=== PATIENT | male | born 1950 | race Caucasian/White ===

== ENCOUNTER 2025-02-11 17:14 | Inpatient (IN) ==
[2025-02-11] MEDS ORDERED: IOPAMIDOL 100 ML BOTTLE IV ONE (17:15)
[2025-02-11] MEDS: 0.9 % SODIUM CHLORIDE 1,000 ML IV ONE (18:00)
[2025-02-11] MEDS: ONDANSETRON 4 MG/2 ML VIAL IV ONE ×2 (18:00→19:30)
[2025-02-11 18:04] LABS: Basophils # (Auto) 0.03 K/mcL (0.00-0.30); Basophils % (Auto) 0.2 % (0.0-2.0); Eosinophils # (Auto) 0.10 K/mcL (0.00-0.70); Eosinophils % (Auto) 0.8 % (0.0-7.0); Hematocrit 52.1 % (40.1-51.0); Hemoglobin 17.0 g/dL (13.7-17.5); Lymphocytes # (Auto) 1.15 K/mcL (1.50-4.80); Lymphocytes % (Auto) 8.7 % (15.5-49.0); Mean Corpuscular HGB Conc 32.6 g/dL (31.0-36.0); Monocytes # (Auto) 0.35 K/mcL (0.10-0.90); Monocytes % (Auto) 2.7 % (1.0-12.0); Neutrophils % (Auto) 87.4 % (38.0-78.0); Platelet Count 207 K/mcL (140-440); RBC 5.34 M/mcL (4.63-6.08); WBC 13.2 K/mcL (4.5-11.0)
[2025-02-11 18:14] LABS: ALT/SGPT 28 U/L (<40); AST/SGOT 24 U/L (<40); Albumin 4.2 gm/dL (3.2-5.2); Albumin/Globulin Ratio 1.2 (1.0-2.3); Alkaline Phosphatase 77 U/L (39-117); Anion Gap 17.0 (8.0-16.0); Bilirubin,Total 1.2 mg/dL (0.1-1.0); Blood Urea Nitrogen 16 mg/dL (8-23); Calcium 9.6 mg/dL (8.6-10.4); Carbon Dioxide 22 mmol/L (22-30); Chloride 98 mmol/L (96-108); Globulin 3.5 gm/dL (2.2-3.7); Glucose 120 mg/dL (70-105); Potassium 4.1 mmol/L (3.3-5.1); Sodium 137 mmol/L (133-145)
[2025-02-11] MEDS ORDERED: NALOXONE HCL 0.4 MG/ML VIAL IV PRN (19:19)
[2025-02-11] MEDS: HYDROmorphone 0.5 MG/0.5 ML SYRINGE IV ONE (19:30)
[2025-02-11] MEDS: cefTRIAXone 2 GM in DEXTROSE 5% IN WATER 50 ML IV ONE (19:30)
[2025-02-11] MEDS: LACTATED RINGERS 1,000 ML IV ONE (19:47)
[2025-02-11] MEDS: metroNIDAZOLE 500 MG/100 ML BAG IV SCH (19:47)
[2025-02-11] MEDS: LACTATED RINGERS 1,000 ML IV SCH (19:48)
[2025-02-11] MEDS: METOPROLOL SUCCINATE 50 MG TAB.XL.24H PO ONE (20:02)
[2025-02-11] MEDS: cefTRIAXone 2 GM in DEXTROSE 5% IN WATER 50 ML IV SCH (21:55)
[2025-02-11] MEDS: 0.9 % SODIUM CHLORIDE 1,000 ML IV SCH (21:56)
[2025-02-12] MEDS: HYDROmorphone 0.5 MG/0.5 ML SYRINGE IV PRN (00:06)
[2025-02-12 06:08] LABS: Basophils # (Auto) 0.03 K/mcL (0.00-0.30); Basophils % (Auto) 0.3 % (0.0-2.0); Eosinophils # (Auto) 0.04 K/mcL (0.00-0.70); Eosinophils % (Auto) 0.3 % (0.0-7.0); Hematocrit 43.7 % (40.1-51.0); Hemoglobin 14.4 g/dL (13.7-17.5); Lymphocytes # (Auto) 0.59 K/mcL (1.50-4.80); Lymphocytes % (Auto) 5.0 % (15.5-49.0); Mean Corpuscular HGB Conc 33.0 g/dL (31.0-36.0); Monocytes # (Auto) 0.83 K/mcL (0.10-0.90); Monocytes % (Auto) 7.1 % (1.0-12.0); Neutrophils % (Auto) 87.1 % (38.0-78.0); Platelet Count 146 K/mcL (140-440); RBC 4.49 M/mcL (4.63-6.08); WBC 11.7 K/mcL (4.5-11.0)
[2025-02-12 06:21] LABS: ALT/SGPT 21 U/L (<40); AST/SGOT 17 U/L (<40); Albumin 3.4 gm/dL (3.2-5.2); Albumin/Globulin Ratio 1.3 (1.0-2.3); Alkaline Phosphatase 58 U/L (39-117); Anion Gap 11.0 (8.0-16.0); Bilirubin,Direct 0.5 mg/dL (<0.3); Bilirubin,Total 1.1 mg/dL (0.1-1.0); Blood Urea Nitrogen 15 mg/dL (8-23); Calcium 8.6 mg/dL (8.6-10.4); Carbon Dioxide 24 mmol/L (22-30); Chloride 104 mmol/L (96-108); Globulin 2.7 gm/dL (2.2-3.7); Glucose 113 mg/dL (70-105); Phosphorous 2.8 mg/dL (2.5-4.5); Potassium 4.1 mmol/L (3.3-5.1); Sodium 139 mmol/L (133-145); Triglycerides 56 mg/dL (<150); Uric Acid 4.5 mg/dL (2.5-8.0)
[2025-02-12] MEDS: ONDANSETRON 4 MG/2 ML VIAL IV PRN (07:15)
[2025-02-12] MEDS: PANTOPRAZOLE 40 MG VIAL IV SCH (07:26)
[2025-02-12] MEDS: metroNIDAZOLE 500 MG/100 ML BAG IV SCH (08:57)
[2025-02-12] MEDS: METOPROLOL SUCCINATE 50 MG TAB.XL.24H PO SCH (20:11)
[2025-02-12] MEDS: ALBUTEROL SULFATE 2.5 MG/3 ML NEBULIZER INH SCH (20:15)
[2025-02-13 05:50] LABS: Basophils # (Auto) 0.03 K/mcL (0.00-0.30); Basophils % (Auto) 0.3 % (0.0-2.0); Eosinophils # (Auto) 0.03 K/mcL (0.00-0.70); Eosinophils % (Auto) 0.3 % (0.0-7.0); Hematocrit 38.7 % (40.1-51.0); Hemoglobin 13.1 g/dL (13.7-17.5); Lymphocytes # (Auto) 0.50 K/mcL (1.50-4.80); Lymphocytes % (Auto) 4.5 % (15.5-49.0); Mean Corpuscular HGB Conc 33.9 g/dL (31.0-36.0); Monocytes # (Auto) 0.73 K/mcL (0.10-0.90); Monocytes % (Auto) 6.5 % (1.0-12.0); Neutrophils % (Auto) 88.0 % (38.0-78.0); Platelet Count 119 K/mcL (140-440); RBC 4.07 M/mcL (4.63-6.08); WBC 11.2 K/mcL (4.5-11.0)
[2025-02-13 06:04] LABS: ALT/SGPT 18 U/L (<40); AST/SGOT 24 U/L (<40); Albumin 2.9 gm/dL (3.2-5.2); Albumin/Globulin Ratio 1.2 (1.0-2.3); Alkaline Phosphatase 50 U/L (39-117); Anion Gap 12.0 (8.0-16.0); Bilirubin,Direct 0.4 mg/dL (<0.3); Bilirubin,Total 0.9 mg/dL (0.1-1.0); Blood Urea Nitrogen 9 mg/dL (8-23); Calcium 7.9 mg/dL (8.6-10.4); Carbon Dioxide 22 mmol/L (22-30); Chloride 110 mmol/L (96-108); Globulin 2.5 gm/dL (2.2-3.7); Glucose 127 mg/dL (70-105); Phosphorous 1.9 mg/dL (2.5-4.5); Potassium 3.5 mmol/L (3.3-5.1); Sodium 144 mmol/L (133-145); Triglycerides 42 mg/dL (<150); Uric Acid 4.1 mg/dL (2.5-8.0)
[2025-02-13] MEDS ORDERED: DEXAMETHASONE 10 MG/ML VIAL ONE (08:47)
[2025-02-13] MEDS ORDERED: ePHEDrine 50 MG/5 ML SYRINGE (ANEST) IV ONE (08:47)
[2025-02-13] MEDS ORDERED: PROPOFOL 200 MG/20 ML VIAL IV ONE (08:47)
[2025-02-13] MEDS ORDERED: FAMOTIDINE/PF 20 MG/2 ML VIAL IV ONE (08:47)
[2025-02-13] MEDS ORDERED: GLYCOPYRROLATE 0.2 MG/ML VIAL IV ONE (08:47)
[2025-02-13] MEDS ORDERED: TRANEXAMIC ACID 1,000 MG/10 ML VIAL ONE (08:47)
[2025-02-13] MEDS ORDERED: PHENYLephrine 1 MG/10 ML SYRINGE (ANEST) ONE (08:47)
[2025-02-13] MEDS ORDERED: LIDOCAINE 2% PF 5 ML VIAL ONE (08:47)
[2025-02-13] MEDS ORDERED: ROCURONIUM 10 MG/ML ML IV ONE (08:47)
[2025-02-13] MEDS ORDERED: METOCLOPRAMIDE 10 MG/2 ML VIAL ONE (08:47)
[2025-02-13] MEDS ORDERED: ONDANSETRON 4 MG/2 ML VIAL ONE (08:47)
[2025-02-13] MEDS ORDERED: HYDROmorphone 0.5 MG/0.5 ML SYRINGE ONE (09:48)
[2025-02-13] MEDS ORDERED: SUGAMMADEX SODIUM 200 MG/2 ML VIAL IV ONE (10:13)
[2025-02-13] MEDS ORDERED: fentaNYL 100 MCG/2 ML VIAL ONE (10:17)
[2025-02-13] MEDS ORDERED: fentaNYL 100 MCG/2 ML VIAL IV PRN (10:36)
[2025-02-13] MEDS ORDERED: IPRATROPIUM/ALBUTEROL 3 ML AMPUL.NEB NEB PRN (10:36)
[2025-02-13] MEDS ORDERED: HYDROmorphone 0.5 MG/0.5 ML SYRINGE IV PRN (10:36)
[2025-02-13] MEDS: DROPERIDOL 5 MG/2 ML VIAL IV PRN (10:49)
[2025-02-13] MEDS: LACTATED RINGERS 1,000 ML IV SCH (13:40)
[2025-02-14 05:56] LABS: Basophils # (Auto) 0.01 K/mcL (0.00-0.30); Basophils % (Auto) 0.1 % (0.0-2.0); Eosinophils # (Auto) 0 K/mcL (0.00-0.70); Eosinophils % (Auto) 0 % (0.0-7.0); Hematocrit 37.0 % (40.1-51.0); Hemoglobin 12.6 g/dL (13.7-17.5); Lymphocytes # (Auto) 0.44 K/mcL (1.50-4.80); Lymphocytes % (Auto) 4.8 % (15.5-49.0); Mean Corpuscular HGB Conc 34.1 g/dL (31.0-36.0); Monocytes # (Auto) 0.50 K/mcL (0.10-0.90); Monocytes % (Auto) 5.4 % (1.0-12.0); Neutrophils % (Auto) 89.4 % (38.0-78.0); Platelet Count 125 K/mcL (140-440); RBC 3.94 M/mcL (4.63-6.08); WBC 9.2 K/mcL (4.5-11.0)
[2025-02-14 06:19] LABS: ALT/SGPT 18 U/L (<40); AST/SGOT 22 U/L (<40); Albumin 2.8 gm/dL (3.2-5.2); Albumin/Globulin Ratio 1.1 (1.0-2.3); Alkaline Phosphatase 55 U/L (39-117); Anion Gap 10.0 (8.0-16.0); Bilirubin,Direct 0.3 mg/dL (<0.3); Bilirubin,Total 0.5 mg/dL (0.1-1.0); Blood Urea Nitrogen 11 mg/dL (8-23); Calcium 8.2 mg/dL (8.6-10.4); Carbon Dioxide 22 mmol/L (22-30); Chloride 104 mmol/L (96-108); Globulin 2.6 gm/dL (2.2-3.7); Glucose 140 mg/dL (70-105); Phosphorous 2.0 mg/dL (2.5-4.5); Potassium 3.9 mmol/L (3.3-5.1); Sodium 136 mmol/L (133-145); Triglycerides 46 mg/dL (<150); Uric Acid 4.1 mg/dL (2.5-8.0)
[2025-02-14] MEDS: POTASSIUM PHOSPHATE 40 MEQ in DEXTROSE 5% IN WATER 500 ML IV ONE (18:48)
[2025-02-14] MEDS: POTASSIUM PHOSPHATE 66 MEQ/15 ML VIAL IV ONE (18:51)
[2025-02-15 11:55] VITALS: TEMP 97.9; O2SAT 97
== END 2025-02-15 16:31 | disposition home or self-care (01) | DRG 399 ==
LOC: ED 17:14 → MEDSUR 20:40
PROVIDERS: ADMIT Family Medicine Adult Medicine; ATTEND Family Medicine Adult Medicine
PROC: LAPAPPY (ICD-10-PCS; 2025-02-13 09:00)

== ENCOUNTER 2025-02-26 10:50 | Observation (INO) ==
[2025-02-26] MEDS ORDERED: IOPAMIDOL 100 ML BOTTLE IV ONE (11:00)
[2025-02-26] MEDS: ONDANSETRON 4 MG/2 ML VIAL IV PRN (12:03)
[2025-02-26] MEDS: METOCLOPRAMIDE 10 MG/2 ML VIAL IV SCH (12:03)
[2025-02-26] MEDS: PANTOPRAZOLE 40 MG VIAL IV SCH (12:03)
[2025-02-26] MEDS: 0.9 % SODIUM CHLORIDE 1,000 ML IV SCH (12:03)
[2025-02-26] MEDS: CIPROFLOXACIN 400 MG/200 ML BAG IV SCH (12:04)
[2025-02-26] MEDS: ACETAMINOPHEN 1,000 MG/100 ML BAG IV SCH (13:11)
[2025-02-26] MEDS: metroNIDAZOLE 500 MG/100 ML BAG IV SCH (13:42)
[2025-02-26 15:42] LABS: ALT/SGPT 109 U/L (<40); AST/SGOT 37 U/L (<40); Albumin 3.7 gm/dL (3.2-5.2); Albumin/Globulin Ratio 1.1 (1.0-2.3); Alkaline Phosphatase 78 U/L (39-117); Anion Gap 15.0 (8.0-16.0); Bilirubin,Direct 0.2 mg/dL (<0.3); Bilirubin,Total 0.5 mg/dL (0.1-1.0); Blood Urea Nitrogen 22 mg/dL (8-23); Calcium 9.6 mg/dL (8.6-10.4); Carbon Dioxide 22 mmol/L (22-30); Chloride 100 mmol/L (96-108); Globulin 3.3 gm/dL (2.2-3.7); Glucose 117 mg/dL (70-105); Phosphorous 3.7 mg/dL (2.5-4.5); Potassium 4.2 mmol/L (3.3-5.1); Sodium 137 mmol/L (133-145); Triglycerides 78 mg/dL (<150); Uric Acid 5.7 mg/dL (2.5-8.0)
[2025-02-26 15:43] LABS: Basophils # (Auto) 0.07 K/mcL (0.00-0.30); Basophils % (Auto) 0.8 % (0.0-2.0); Eosinophils # (Auto) 0.28 K/mcL (0.00-0.70); Eosinophils % (Auto) 3.2 % (0.0-7.0); Hematocrit 47.3 % (40.1-51.0); Hemoglobin 15.6 g/dL (13.7-17.5); Lymphocytes # (Auto) 1.29 K/mcL (1.50-4.80); Lymphocytes % (Auto) 14.8 % (15.5-49.0); Mean Corpuscular HGB Conc 33.0 g/dL (31.0-36.0); Monocytes # (Auto) 0.82 K/mcL (0.10-0.90); Monocytes % (Auto) 9.4 % (1.0-12.0); Neutrophils % (Auto) 71.5 % (38.0-78.0); Platelet Count 338 K/mcL (140-440); RBC 4.95 M/mcL (4.63-6.08); WBC 8.7 K/mcL (4.5-11.0)
[2025-02-26] MEDS: METOPROLOL SUCCINATE 50 MG TAB.XL.24H PO SCH (20:13)
[2025-02-26] MEDS: APIXABAN 5 MG TABLET PO SCH (20:13)
[2025-02-26] MEDS: MYCOPHENOLATE 250 MG CAPSULE PO SCH (20:13)
[2025-02-26] MEDS: ALBUTEROL SULFATE 2.5 MG/3 ML NEBULIZER NEB SCH (20:52)
[2025-02-27 04:20] LABS: Basophils # (Auto) 0.09 K/mcL (0.00-0.30); Basophils % (Auto) 1.2 % (0.0-2.0); Eosinophils # (Auto) 0.41 K/mcL (0.00-0.70); Eosinophils % (Auto) 5.4 % (0.0-7.0); Hematocrit 42.3 % (40.1-51.0); Hemoglobin 13.7 g/dL (13.7-17.5); Lymphocytes # (Auto) 2.29 K/mcL (1.50-4.80); Lymphocytes % (Auto) 29.9 % (15.5-49.0); Mean Corpuscular HGB Conc 32.4 g/dL (31.0-36.0); Monocytes # (Auto) 0.85 K/mcL (0.10-0.90); Monocytes % (Auto) 11.1 % (1.0-12.0); Neutrophils % (Auto) 52.1 % (38.0-78.0); Platelet Count 300 K/mcL (140-440); RBC 4.35 M/mcL (4.63-6.08); WBC 7.7 K/mcL (4.5-11.0)
[2025-02-27 04:42] LABS: ALT/SGPT 75 U/L (<40); AST/SGOT 27 U/L (<40); Albumin 3.3 gm/dL (3.2-5.2); Albumin/Globulin Ratio 1.3 (1.0-2.3); Alkaline Phosphatase 63 U/L (39-117); Anion Gap 10.0 (8.0-16.0); Bilirubin,Direct 0.3 mg/dL (<0.3); Bilirubin,Total 0.6 mg/dL (0.1-1.0); Blood Urea Nitrogen 15 mg/dL (8-23); Calcium 8.3 mg/dL (8.6-10.4); Carbon Dioxide 24 mmol/L (22-30); Chloride 103 mmol/L (96-108); Globulin 2.5 gm/dL (2.2-3.7); Glucose 91 mg/dL (70-105); Phosphorous 3.3 mg/dL (2.5-4.5); Potassium 3.9 mmol/L (3.3-5.1); Sodium 137 mmol/L (133-145); Triglycerides 73 mg/dL (<150); Uric Acid 5.4 mg/dL (2.5-8.0)
[2025-02-28 11:34] LABS: Basophils # (Auto) 0.07 K/mcL (0.00-0.30); Basophils % (Auto) 1.2 % (0.0-2.0); Eosinophils # (Auto) 0.21 K/mcL (0.00-0.70); Eosinophils % (Auto) 3.5 % (0.0-7.0); Hematocrit 40.7 % (40.1-51.0); Hemoglobin 13.2 g/dL (13.7-17.5); Lymphocytes # (Auto) 0.93 K/mcL (1.50-4.80); Lymphocytes % (Auto) 15.4 % (15.5-49.0); Mean Corpuscular HGB Conc 32.4 g/dL (31.0-36.0); Monocytes # (Auto) 0.63 K/mcL (0.10-0.90); Monocytes % (Auto) 10.4 % (1.0-12.0); Neutrophils % (Auto) 69.3 % (38.0-78.0); Platelet Count 269 K/mcL (140-440); RBC 4.21 M/mcL (4.63-6.08); WBC 6.0 K/mcL (4.5-11.0)
[2025-02-28 12:05] LABS: ALT/SGPT 54 U/L (<40); AST/SGOT 20 U/L (<40); Albumin 3.1 gm/dL (3.2-5.2); Albumin/Globulin Ratio 1.2 (1.0-2.3); Alkaline Phosphatase 59 U/L (39-117); Anion Gap 8.0 (8.0-16.0); Bilirubin,Direct < 0.2 mg/dL (0-0.3); Bilirubin,Total 0.4 mg/dL (0.1-1.0); Blood Urea Nitrogen 8 mg/dL (8-23); Calcium 8.4 mg/dL (8.6-10.4); Carbon Dioxide 23 mmol/L (22-30); Chloride 108 mmol/L (96-108); Globulin 2.6 gm/dL (2.2-3.7); Glucose 109 mg/dL (70-105); Phosphorous 2.3 mg/dL (2.5-4.5); Potassium 3.6 mmol/L (3.3-5.1); Sodium 139 mmol/L (133-145); Triglycerides 121 mg/dL (<150); Uric Acid 5.0 mg/dL (2.5-8.0)
[2025-02-28 12:07] VITALS: O2SAT 97
[2025-02-28 16:38] VITALS: TEMP 97.4
== END 2025-02-28 17:19 | disposition home or self-care (01) ==
LOC: MEDSUR
PROVIDERS: ADMIT Family Medicine Adult Medicine; ATTEND Family Medicine Adult Medicine